=== PATIENT | female | born 1980 | race Caucasian/White ===

== ENCOUNTER 2023-01-26 19:50 | Emergency (ER) | payer MEDICARE, SELFPAY ==
--- NOTE | ~2023-01-26 | XR_ITS ---
EXAM: XR hand RT min 3V, XR wrist RT 2V DATE: 01/26/2023 20:34 HISTORY: DOG BITE. RIGHT HAND PAIN. . COMPARISON: None available. FINDINGS: Exam limited by overlying bandage material and overlapping fingers and the lateral view. No rmal mineralization. No fracture or dislocation. No lytic or blastic lesion. Joint spaces are maintai mary. No erosion or periosteal change. Scattered areas of soft tissue lacerations and punctures. IMPRESSION: No definite acute osseous finding in the hand or wrist, noting that examination of the lorenz nd is limited by overlying bandage material and overlapping fingers and the lateral view. Consider repeat radiographs after bandage removal, with attention to completely fanning the fingers i n the lateral position. Reviewed, dictated and finalized at location K. IMPRESSION: No definite acute osseous finding in the hand or wrist, noting that examination of the hand is limited by overlying bandage material and overlappi ng fingers and the lateral view. Consider repeat radiographs after bandage removal, with attention to completely fanning the fingers in the lateral position.
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
[2023-01-26] MEDS: HYDROmorphone HCL INJ (*CRX) 2 MG/ML VIAL 1 MG IV PUSH (20:21)
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
[2023-01-26] MEDS: LORazepam INJ (*CRX) 2 MG/ML VIAL 1 MG IV PUSH (20:40)
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
[2023-01-26 21:31] VITALS: BP 112/79; PULSE 73; RESP 17; TEMP 36.1; O2SAT 99
[2023-01-26] MEDS: Please add drug allergy info to patient profile. 1 EACH XX (21:42)
--- NOTE | 2023-01-26 21:49 | PC.NURSE ---
pt to be transferred to [facility] ER via [facility]. currently waiting for EMS transport.
--- NOTE | 2023-01-26 21:50 | PC.NURSE ---
pt resting in bed at this time with family member at bedside.
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
--- NOTE | 2023-01-26 22:15 | PC.NURSE ---
[facility] in ER to transport patient
[2023-01-26 22:24] VITALS: BP 93/54; PULSE 87; RESP 16; TEMP 36.1; O2SAT 97
== END 2023-01-26 22:29 | disposition short-term general hospital (02) ==
PROVIDERS: Emergency Provider Emergency Medicine; PCP Family Medicine
DX: S71.152A Open bite, left thigh, initial encounter (principal); S61.451A Open bite of right hand, initial encounter; S61.452A Open bite of left hand, initial encounter; W54.0XXA Bitten by dog, initial encounter
CPT/HCPCS: 73100; 73130; 96374; 96375; 99285; J1170; J2060